=== PATIENT | female | born 1990 | race Hispanic/Latino ===

== ENCOUNTER 2017-12-12 17:41 | Inpatient (IN) | payer SELFPAY ==
[~2017-12-12] VITALS: Ht 157.5 cm; Wt 72.6 kg
[2017-12-12 18:29] LABS: ABSOLUTE BASOPHIL COUNT 0.1 /CUMM (0.0-0.2); ABSOLUTE EOSINOPHIL COUNT 0.1 /CUMM (0.0-0.7); ABSOLUTE GRANULOCYTE CT 7.4 /CUMM (1.4-6.5); ABSOLUTE LYMPH COUNT 2.1 /CUMM (1.2-3.4); ABSOLUTE MONOCYTE COUNT 0.8 /CUMM (0.10-0.60); BASOPHIL % 0.9 % (0.0-2.0); EOSINOPHIL % 0.6 % (0-5); GRANULOCYTE % 70.3 % (42.2-75.2); HEMATOCRIT 36.7 % (37-47); MEAN CORPUSCULAR HGB 26.9 PG (27.0-31.0); MEAN CORPUSCULAR HGB CONC 33.5 G/DL (33.0-37.0); MEAN CORPUSCULAR VOLUME 80.3 FL (81.0-99.0); MEAN PLATELET VOLUME 8.8 FL (7.4-10.4); PLATELET COUNT 321 /CUMM (130-400); RED BLOOD CELL CT 4.57 /CUMM (4.20-5.40); WHITE BLOOD CELL COUNT 10.5 /CUMM (4.8-10.8)
[2017-12-12 18:36] VITALS: BP 128/81
--- NOTE | 2017-12-12 19:06 | History & Physical ---
General Information and HPI MD Statement: I have seen and personally examined TERESA SANTIAGO and documented this H&P. The patient is a 27 year old female at [39] weeks and [6] days gestation who presented with a chief complaint of [LOF]. Source of Information: patient Exam Limitations: no limitations History of Present Illness: 27yo, 39 6/7wks, c/o LOD since 10 AM today, with some ctxs, denies VB , reports GFM. amnisure positive. Limited care at [facility], no care at /s. EDC based on 16 4/ 7wks u/s. 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 EENTM: Reports: no symptoms. Cardiovascular: Reports: no symptoms. Respiratory: Reports: no symptoms. GI: Reports: no symptoms. Genitourinary: Reports: see HPI. Musculoskeletal: Reports: no symptoms. Skin: Reports: no symptoms. Neurological/Psychological: Reports: no symptoms. Hematologic/Endocrine: Reports: no symptoms. Immunologic/Allergic: Reports: no symptoms. All Other Systems: Reviewed and Negative Exam & Diagnostic Data Last 24 Hrs of Vital Signs/I&O Vital Signs Date Time Temp Pulse Resp B/P B/P Pulse O2 O2 Flow FiO2 Mean Ox Delivery Rate 12/12 1836 128/81 Obstetric Exam Wgt Gained During : unknown Pelvimetry: seems adequate Dilation (cm): 0 (FT by RN) Effacement (%): 30 Station: -3 Membranes: SROM Fluid: clear Fundal Height (cm): 40 Multiple Gestation? No Contractions: irregular #1 - FHR Baseline: 140 Category: 1 Estimated Weight: 3500g Presentation: vertex( by u/s) Patient for Induction? No Physical Exam: VSS General: NAD abdomen: gravid, soft, nontender Ext: DCT (-) Labs Blood Type & Rh: O positive Antibody Screen: negative Hct/Hgb & Platelets #1: unknown Hct/Hgb & Platelets #2: 12.3/36.7%,plt [id number] Rubella: unknown VDRL #1: unknown VDRL #2: unknown HbsAg: unknown HIV #1: unknown HIV #2 negative 1 Hr PG: unknown Group B Strep: unknown Initial Ultrasound: IUP at 16 wks Anatomy Ultrasound: unknown Genetic Testing: unknown Last 24 Hrs of Labs/Andrey: Laboratory Tests 12/12/17 1800: Glucose 80, Hemoglobin A1c Pending, RPR Titer/FTA Pending, Rubella Screen Pending 12/12/17 1800: Estimated GFR > 60, Uric Acid 5.5, AST 16, ALT 18, Lactate Dehydrogenase 381, CBC w Diff NO MAN DIFF REQ, RBC 4.57, MCV 80.3 L, MCH 26.9 L, MCHC 33.5, RDW 16.0 H, MPV 8.8, Gran % 70.3, Lymphocytes % 20.3 L, Monocytes % 7.9, Eosinophils % 0.6, Basophils % 0.9, Absolute Granulocytes 7.4 H, Absolute Lymphocytes 2.1, Absolute Monocytes 0.8 H, Absolute Eosinophils 0.1, Absolute Basophils 0.1, Hep Bs Antigen NONREACTIVE, HIV 1&2 Ab Western Blot NONREACTIVE, Urine Opiates Screen < 100, Methadone Screen < 40, Barbiturate Screen < 60, Ur Phencyclidine Scrn < 6.00, Amphetamines Screen < 100, U Benzodiazepines Scrn < 85, Urine Cocaine Screen < 50, Urine Cannabis Screen < 5.00, Ur Random Creatinine 90.8, U Random Total Protein 14 H, Protein/Creatinin Ratio 0.1 12/12/17 1755: Membrane Rupture POSITIVE, Urine Color YEL, Urine Clarity CLEAR, Urine pH 6.0, Ur Specific [place] 1.020, Urine Protein NEG, Urine Ketones TRACE H, Urine Nitrite NEG, Urine Bilirubin NEG, Urine Urobilinogen 0.2, Ur Leukocyte Esterase NEG, Ur Microscopic SEDIMENT EXAMINED, Urine RBC 1-3, Urine WBC RARE, Ur Epithelial Cells FEW, Urine Bacteria MOD H, Urine Hemoglobin SMALL H, Urine Glucose NEG Microbiology 12/13 1226 URINE ROUT: Urine Culture - COLB Assessment/Plan Assessment/Plan: 27yo, 39 6/7wks SROM 1. admit pt, admission labs 2. antibiotics for GBS prophylaxis 3. may consider pitocin augmentation 4.will monitor closely As Ranked By This Provider Problem List: 1. 2. SROM (spontaneous rupture of membranes) Core Measures Venous Thromboembolism VTE Risk Factors / No Mechanical VTE Prophylaxis d/t LowRisk-No Interven Req'd No VTE Pharm Prophylaxis d/t LowRisk-No Interven Req'd Attending MD Review Statement Attending Statement Attending MD Statement: examined this patient, discussed with family, discussed w/nursing
--- NOTE | 2017-12-12 22:10 | PN- OBGYN ---
Surgical Brief Attending Note Brief Attending Note: pt had SROM 10 AM today, now is 12 hrs after, no regular ctxs on TOCO: ctxs irregular, FHR baseline 140, moderate variability, occasional variable decels, then quickly return to baseline will start pitocin augmentation, will monitor closely
--- NOTE | 2017-12-13 08:02 | PN- OBGYN ---
Surgical Brief Attending Note Brief Attending Note: pt is resting in bed, c/o some ctxs pain, pitocin 6 mU/min on TOCO: ctxs 3-5 min, FHR baseline 140, moderate variability, intermittent early decels to 120, then return to baseline cervix FT/long/-3, posterior will continue pitocin induction, monitor closely
--- NOTE | 2017-12-13 10:30 | PN- OBGYN ---
Surgical Brief Attending Note Brief Attending Note: pt refused vaginal exam, request . R/B/A of vs vaginal delivery d/w pt through pest control specialist( [phone]), she understand, all questions answered. also d/w pt in detail about R/B of PLTCS and risks for subsequent prfegnancy, she understand. all questions answered, informed consent obtained. OR team informed. will prepare for OR
--- NOTE | 2017-12-13 13:27 | Operative Report ---
Operative/Inv Procedure Report Surgery Date: 12/13/17 Name of Procedure: Primary low transverse section Via Pfannenstiel Pre-Operative Diagnosis: G1 para 0 at 40 weeks intrauterine , prolonged rupture of membranes Post-Operative Diagnosis: Same section via maternal request Estimated Blood Loss: 600ml Surgeon/Mutual Funds Agent: Stiven Waterman MD, Dr. Anesthesia: spinal IV Fluids: Lactated Ringer's Urine Output: 500 mL clear urine at the end of procedure Specimens: Placenta Complications: None Condition: Stable Operative Indication: 27-year-old, G1 para 0, at 40 weeks intrauterine , prolonged rupture membranes, patient has no care in [place] limited care in [facility]. Patient requested section Operative/Procedure Note Note: The patient was taken to the operating room where spinal anesthesia was found to be adequate. She was then prepared and draped in the normal sterile fashion in the dorsosupine position with a leftward tilt. A Pfannenstiel skin incision was then made with a scalpel and carried through to the underlying layer of the fascia with the Bovie. The fascia was incised in the midline and incision extended laterally with the Muñiz scissors. This inferior aspect of this fascial incision was grasped with the Mala clamps, elevated, and the underlying rectus muscle dissected off with Muñiz scissors. Attention was then turned to the superior aspect of this fascial incision which, in a similar fashion, was grasped, tented up with the Mala clamps, and the rectus muscle dissected off with Muñiz scissors. The rectus muscle was then in the midline, and the peritoneum identified, and entered bluntly. The peritoneum incision was then extended superiorly and inferiorly with good visualization of the bladder. The bladder blade was then inserted and the vesicouterine peritoneum identified, grasped with the pickups and entered sharply with the Metzenbaum scissors. The incision was then extended laterally and the bladder flap created digitally. The bladder blade was then reinserted and the lower uterine segment incised in a transverse fashion with the scalpel. The uterine incision was then extended laterally. The bladder blade was removed and the infant head delivered atraumatically. Nuchal cord 3 noted and reduced. The mouth and nose was suctioned with the suction bulb and the cord clamped and cut. The was handed off to the waiting pediatricians. The placenta was then removed manually, and the uterus is exteriorized, and clear of all clots and debris. The uterine incision was then repaired with 0 Vicryl in a running locked fashion. A second layer of the same suture was used to achieve excellent hemostasis. The uterus returned into the abdomen. The gutters were cleared of all clots, 1 g Kiara was placed at the uterine incision line. The peritoneum closed with 3-0 Vicryl, rectus muscle was reapproximated with 2-0 Vicryl. The fascia was reapproximated with 0 Vicryl in a running fashion. Subcutaneous adipose tissue was reapproximated with 3 oh plain suture. The skin was closed with 4-0 Monocryl subcuticularly. The patient tolerated the procedure well. Sponge, laps and needles counts were correct 2. Patient was taken to the recovery room in stable condition. 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 8 and 9, weight 3147g , normal uterus, tubes, and ovaries.
--- NOTE | 2017-12-14 05:46 | PN- OBGYN ---
Surgical Brief Attending Note Brief Attending Note: POD 1 (market development analyst Parish present) Patient states her pain is under control. Hasn't been up OOB yet. afebrile, VS normal Neck -supple Cor - RRR Lungs - quiet, slow resp. Abd - soft, NT Fundus - firm, NT Dressing - dry, intact Perineum - dry Extr - benign A: stable s/p C/S per maternal request, PROM at term, recent from [facility] P: routine PO care Patient has a son, I asked her about circumcision and she said she would speak to the baby's father and her family about that later today.
[2017-12-14 09:14] LABS: ABSOLUTE BASOPHIL COUNT 0 /CUMM (0.0-0.2); ABSOLUTE EOSINOPHIL COUNT 0.1 /CUMM (0.0-0.7); ABSOLUTE GRANULOCYTE CT 6.1 /CUMM (1.4-6.5); ABSOLUTE MONOCYTE COUNT 0.4 /CUMM (0.10-0.60); BASOPHIL % 0.2 % (0.0-2.0); EOSINOPHIL % 0.7 % (0-5); GRANULOCYTE % 71.2 % (42.2-75.2); MEAN CORPUSCULAR HGB 27.7 PG (27.0-31.0); MEAN CORPUSCULAR VOLUME 81.6 FL (81.0-99.0); MEAN PLATELET VOLUME 8.8 FL (7.4-10.4); PLATELET COUNT 259 /CUMM (130-400); RBC DISTRIBUTION WIDTH 16.4 % (11.5-14.5); RED BLOOD CELL CT 3.68 /CUMM (4.20-5.40); WHITE BLOOD CELL COUNT 8.6 /CUMM (4.8-10.8)
--- NOTE | 2017-12-15 11:57 | PN- OBGYN ---
Surgical Brief Attending Note Brief Attending Note: pt feeling better today. amb / void / lisbet po. pain well controlled. +bf. + flatus. no bm. does not want circ. afeb, v/ss nad abd soft nt nd ff inc c/d/i rubi min lochia ext nt +2 b/l le ed a/p pod 2 s/p c/s, doing well -enc oob / amb -pain mgmt -routine pop care
[2017-12-16] MEDS ORDERED: PRENATAL PLUS1 EAC2 PO (10:05)
[2017-12-16] MEDS ORDERED: IBUPROFEN800 M1 PO (10:05)
[2017-12-16] MEDS ORDERED: PERCOCET 5-3251 EACH PO (10:05)
--- NOTE | 2017-12-16 10:11 | PN- Post Delivery/GYN ---
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 Review of Systems Constitutional: Denies: chills, fever. EENTM: Denies: blurred vision, double vision, visual changes. Cardiovascular: Reports: edema. Denies: chest pain. Respiratory: Denies: cough. Gastrointestinal: Denies: nausea, vomiting. Neurological/Psychological: Denies: ataxia, depressed. Objective Last 24 Hrs of Vital Signs/I&O vss Physical Exam General Appearance Alert, Oriented X3, Cooperative, No Acute Distress Skin No Rashes HEENT Atraumatic Neck Supple Cardiovascular Regular Rate Lungs Clear to Auscultation Abdomen Soft, fundus firm incision clean and dry Extremities No Clubbing (edema to mid calf) Pelvic (FEMALE) lochia serosanganous Current Medications: Current Medications Sig/Arvind Start time Last Medication Dose Route Stop Time Status Admin Acetaminophen 650 MG Q4P PRN 12/13 1230 AC PO Bisacodyl 10 MG DAILY NEEDED PRN 12/13 1230 AC IN Diphenhydramine HCl 25 MG Q6P PRN 12/13 1430 AC IV Docusate Sodium 100 MG AT BEDTIME PRN 12/13 1230 AC 12/15 PO 2357 Ibuprofen 0 .STK-MED ONE 12/15 1806 DC PO Ibuprofen 0 .STK-MED ONE 12/15 1200 DC PO Ibuprofen 800 MG Q6P PRN 12/13 1230 AC 12/16 PO 0632 Magnesium Hydroxide 30 ML DAILY NEEDED PRN 12/13 1230 AC PO Metoclopramide HCl 10 MG Q6P PRN 12/13 1430 AC IV Naloxone HCl 0.2 MG .Q5 MIN PRN 12/13 1430 AC IV Oxycodone/ 0 .STK-MED ONE 12/15 1806 DC Acetaminophen PO Oxycodone/ 0 .STK-MED ONE 12/15 1159 DC Acetaminophen PO Oxycodone/ 1 TAB Q4P PRN 12/13 1230 AC 12/16 Acetaminophen PO 0632 Oxycodone/ 2 TAB Q4P PRN 12/13 1230 AC 12/14 Acetaminophen PO 2311 Simethicone 80 MG Q6P PRN 12/15 0030 AC 12/15 PO 2357 Assessment/Plan Assessment/Plan POD #3 s/p c/s doing well Problem List: 1. SROM (spontaneous rupture of membranes) Attending MD Review Statement Attending Statement Attending MD Statement: examined this patient, discussed with family, discussed with nursing
--- NOTE | 2017-12-17 09:49 | Discharge Summary ---
Visit Information Visit Dates Admission Date: 12/12/17 Discharge Date: 12/16/17 Hospital Course Course Attending Physician: Stiven Waterman MD Primary Care Physician: Alejandra Louie APRN Hospital Course: 27yo, 40 wks, she was admitted for SROM on 12/12/2017, she had PLTCS by maternal request on 12/13/2017, delivered a viable male infant without complications. During the hospital stay, she remained in stable condition, tolerate diet, void without difficulties. ambulating well. vitals are WNL, afebrile. uterues firm, funduns below umbilicus. incision D/C/I. lochia mild. she was discharged on 12/16/2017 with instructions given. Complications: none Allergies: Coded Allergies: No Known Allergies (12/12/17) Significant Procedures: PLTCS Disposition Summary Disposition Principal Diagnosis: 40 wks, SROM, by maternal request Additional Diagnosis: same Discharge Disposition: home or self care Discharge Instructions General Discharge Information Code Status: Full Code Patient's Diet: regular Patient's Activity: as tolerated Follow-Up Instructions/Appts: f/u in office in 2wks and 6 wks Medications at Discharge Discharge Medications: Start taking the following new medications: Ibuprofen (Ibuprofen) 800 MG TABLET 800 Milligram ORAL EVERY SIX HOURS NEEDED as needed for UTERINE CRAMPING Qty = 90 No Refills Comments: Last Taken: 12/16/17 Time: 6:30 am Oxycodone HCl/Acetaminophen (Percocet 5-325 MG Tablet) 5 MG-325 MG TABLET 1 Tablet ORAL EVERY 4 HOURS NEEDED as needed for PAIN SCALE 4-6 (MODERATE ) Qty = 30 No Refills Comments: Last Taken: 12/16/17 Time: 6:30 Pnv With Ca,No.72/Iron,Carb/FA ( Plus Iron Tablet) 29 MG IRON-1 MG TABLET 1 Tablet ORAL DAILY Qty = 30 No Refills Copies To: Stiven Waterman MD Attending Review Statement Documenting Attending: Stiven Waterman MD
== END 2017-12-16 12:14 | DRG 766 ==
LOC: CBCO 17:41 → GNO 18:13
PROVIDERS: Obstetrics & Gynecology
PROC: 10D00Z1 Extraction of Products of Conception, Low, Open Approach (ICD-10-PCS; principal; 2017-12-13)
DX: O69.81X0 Labor and delivery complicated by cord around neck, without compression, not applicable or unspecified (principal); Z3A.40 40 weeks gestation of pregnancy; Z37.0 Single live birth
CPT/HCPCS: 86762; GNOP; GNOS; 36415; 80307; 81001; 82570; 84112; 87086; 87389; J0131; J0690; J1885; J7120; Q2036